=== PATIENT | male | born 1965 | race Two or more races ===

== ENCOUNTER 2023-11-10 09:39 | Emergency (ER) | payer OTHER, MEDICAID ==
[~2023-11-10] VITALS: Ht 170.2 cm; Wt 80.0 kg
[2023-11-10 10:18] LABS: Basophils # (auto) 0.1 10 ^3/uL (0-0.2); Eosinophils # (auto) 0.1 10 ^3/uL (0-0.8); Hemoglobin 17.4 g/dL (13.5-17.5); Lymphocytes # (auto) 1.2 10 ^3/uL (0.4-5.4); Monocytes # (auto) 0.3 10 ^3/uL (0-1.3); Neutrophils # (auto) 3.3 10 ^3/uL (1.6-8.6); White Blood Cell 4.9 10^3/uL (4.4-10.8)
[2023-11-10 10:20] LABS: Basophils % (auto) 1.1 % (0.0-2.0); Eosinophils % (auto) 2.6 % (0.0-7.0); Hematocrit 48.3 % (41.0-53.0); Lymphocytes % (auto) 23.7 % (10.0-50.0); Mean Corpuscular Hemoglobin 34.7 pg (28.0-32.0); Mean Corpuscular Hgb Conc. 36.1 g/dL (32.0-36.0); Monocytes % (auto) 5.8 % (0.0-12.0); Neutrophils % (auto) 66.8 % (37.0-80.0); Nucleated Red Blood Cells % 0.2 %; Platelet Count (auto) 140 10^3/uL (140-450); Red Blood Cells 5.03 10^6/uL (4.5-5.90)
[2023-11-10 10:32] LABS: INR 1.35 (0.9-1.15)
[2023-11-10 10:46] LABS: Alanine Aminotransferase 19 U/L (7-40); Albumin 4.7 g/dL (3.2-4.8); Alkaline Phosphatase 98 U/L (46-116); Anion Gap 6 (5-15); Aspartate Aminotransferase 18 U/L (13-40); BUN/Creatinine Ratio 9.2 (10.0-20.0); Bilirubin, Total 2.3 mg/dL (0.2-1.0); Blood Urea Nitrogen 10 mg/dL (9-23); Calcium 10.1 mg/dL (8.7-10.4); Carbon Dioxide 24 mmol/L (20-30); Chloride 109 mmol/L (98-107); Glucose 106 mg/dL (74-106); Potassium 4.3 mmol/L (3.5-5.1); Sodium 139 mmol/L (136-145); Total Protein 7.9 g/dL (5.7-8.2)
[2023-11-10] MEDS ORDERED: PANT40TA2 PO (15:43)
[2023-11-10] MEDS ORDERED: BACL10TA PO (15:43)
[2023-11-10] MEDS ORDERED: GABA-1250 PO (15:43)
[2023-11-10 16:08] VITALS: BP 121/76; PULSE 70; RESP 18; TEMP 97.6; O2SAT 97
== END 2023-11-10 16:10 | disposition home or self-care (01) ==
LOC: ER 09:39
DX: R06.6 Hiccough (principal)
CPT/HCPCS: 36415; 71045; 71260; 80053; 84484; 85025; 85610; 85730; 93005